=== PATIENT | male | born 1970 | race Caucasian/White ===

== ENCOUNTER 2019-07-05 05:56 | Emergency (ER) | payer BC, SELFPAY ==
[2019-07-05 06:01] VITALS: BP 140/103; PULSE 82; RESP 18; TEMP 36.8; O2SAT 95
[2019-07-05 06:05] VITALS: RESP 20
--- NOTE | 2019-07-05 06:06 | ED.GENADUL_ITS ---
Discharge Plan Disposition Patient Disposition: HOME Condition: Good Discharge Details Chief Complaint: SOB Clinical Impression: COPD exacerbation Primary Care Provider: Unknown,Unknown ED Provider: Zach Vázquez Meds and New Rx's Prescriptions: New prednisone 10 mg tablet See Rx Instructions .ROUTE .COMPLEX Qty: 40 RF: 0 albuterol sulfate 90 mcg/actuation HFA aerosol inhaler 2 puff IH .q4-6h PRN (Reason: shortness of breath or wheezing) Qty: 8.5 RF: 0 Continued Combivent Respimat 120 PUFF mist 1 puff Inhalation QID PRN PRNQty: 1 RF: 0 Discharge Instructions Instructions: COPD (Chronic Obstructive Pulmonary Disease) (ED) Additional Instructions: The albuterol inhaler with spacer every 4-6 hours for wheezing and shortness of breath. Prednisone taper as directed. Please follow-up with primary care within the next 1 to 2 weeks. Return to ED for fever, increasing shortness of breath, chest pain, other concerns or changes. Referrals: [facility] [Outside] Medical Decision Making Patient presenting with 2 months of worsening cough, shortness of breath and wheezing with history of COPD. No fever. No acute change just simply gradual worsening over time and not responding as well to inhalers and nebs as previous. He does not appear to be in distress. Given the duration of symptoms my suspicion for COVID is quite low. No focality to his exam but will obtain chest x-ray. Will give albuterol and prednisone. Chest x-ray per my review shows COPD changes but no infiltrates or edema. Patient feels better after using albuterol inhaler here. He has had his prednisone. He will go home with inhaler and prescription for prednisone taper. I will have him follow-up with his primary care at the [facility] within the next 1 to 2 weeks before the taper is complete. Return to ED for increasing shortness of breath, chest pain, fever. Medical Records Medical records reviewed: Yes I reviewed the patient's medical records. HPI General Mode of arrival: ambulatory . Date/Time Provider Initiated Documentation: 07/05/19 06:04 . Limitations to Documentation: no limitations . Information obtained by: patient and RN notes reviewed . HPI Narrative: Patient presents to ED with cough, wheezing and shortness of breath for about 2 months now. He does have a history of COPD. He has Combivent inhaler and has a nebulizer machine which he has been using. He denies having fever, congestion, sore throat. He has no chest pain. Inhaler and nebulizer make him better for short period of time. He has been having to use those more frequently. His inhaler is almost gone at this point. He does not have refills. [facility]. He does not necessarily feel worse this morning, but decided he should be seen as he is going to need new inhalers. Related Data Home Medications Medication Instructions Recorded Confirmed Combivent Respimat 1 puff INHALATION QID PRN PRN #1 01/11/14 07/05/19 aer.w.adap albuterol sulfate 2 puff IH .q4-6h PRN #8.5 gm 07/05/19 prednisone See Rx Instructions .ROUTE 07/05/19 .COMPLEX #40 tab Previous Rx's Medication Instructions Recorded Combivent Respimat 1 puff INHALATION QID PRN PRN #1 01/11/14 aer.w.adap albuterol sulfate 2 puff IH .q4-6h PRN #8.5 gm 07/05/19 prednisone See Rx Instructions .ROUTE 07/05/19 .COMPLEX #40 tab Allergies Allergy/AdvReac Type Severity Reaction Status Date / Time Penicillins Allergy Mild unkown as Unverified 07/05/19 06:14 child General Stated Complaint: SOB MILLICENT: 3 Review of Systems Constitutional Constitutional: Denies chills, Denies fever(s) and Denies headache(s) ENT Ears, Nose, Mouth, and Throat: Denies headache(s), Denies nasal congestion and Denies sore throat Cardiovascular Cardiovascular: Denies chest pain, Denies leg edema and Reports dyspnea Respiratory Respiratory: Reports cough, Denies excessive phlegm production, Reports dyspnea and Reports wheezing Neurologic Neurologic: Denies headache(s) Allergic/Immunologic Allergic/Immunologic: Reports wheezing [facility] Medical History COPD (chronic obstructive pulmonary disease) (Chronic) GERD (gastroesophageal reflux disease) (Chronic) HTN (hypertension) (Chronic) Surgical History S/P tonsillectomy (Acute) Social History Smoking/Tobacco Use Status: Former Tobacco Use Alcohol Intake: current Alcohol Intake frequency: a few times a month Drug use: Never Substance use type: does not use Do you feel safe at home: Yes Do you feel safe in your relationship?: Yes Exam Narrative Exam Narrative: Vitals: Afebrile. Elevated blood pressure otherwise normal pulse and r espiratory rate. Normal room air pulse oximetry at 95. Const: WDWN male in NAD. HEENT: NC/AT. Normal facial exam. Eyes: Normal conjunctiva and sclera. Neck: Supple. Trachea midline. Lungs: Normal respiratory effort. Lungs decent air exchange but prolonged expiratory phase with wheezing. Cor: RRR without murmur/gallop. Neuro: A+O x 3. Normal speech, mentation, gait. Cranial nerves II - XII grossly intact. No gross motor or sensory deficit. Course Vital Signs Vital signs: Vital Signs Temperature 98.2 F 07/05/19 06:01 Pulse 82 07/05/19 06:01 Respiratory Rate 18 07/05/19 06:01 Blood Pressure 140/103 H 07/05/19 06:01 Pulse Oximetry 95 07/05/19 06:01 Temperature 98.2 F 07/05/19 06:01 Pulse 82 07/05/19 06:01 Respiratory Rate 18 07/05/19 06:01 Blood Pressure 140/103 H 07/05/19 06:01 Blood Pressure Position Sitting 07/05/19 06:01 Pulse Oximetry 95 07/05/19 06:01 Oxygen Delivery Method Room Air 07/05/19 06:01 Oxygen Flow Rate 0 07/05/19 06:01 Pain Level 0 07/05/19 06:01
--- NOTE | 2019-07-05 06:15 | DI.RAD_ITS ---
EXAM: XR CHEST 2V PA LATERAL CLINICAL HISTORY: cough, wheezing TECHNIQUE: 2D digital imaging was performed. COMPARISON: CR CHEST 2 VIEWS PA,LAT from 01/24/2014 FINDINGS: MEDIASTINUM: Mildly ectatic aorta. HEART: Normal. PULMONARY VASCULATURE: Normal. LUNGS: Clear. PLEURAL SPACE: No pleural effusion or pneumothorax. BONE:Mild degenerative changes in the thoracic spine. OTHER FINDINGS:Normal. IMPRESSION: No acute pulmonary findings. DATA REPOSITORY: RADIATION DOSE DELIVERED:
[2019-07-05] MEDS: predniSONE 20 MG TAB 60 MG PO (06:20)
[2019-07-05] MEDS: Albuterol HFA 8 GM 60 PUFF INH IH (06:21)
--- NOTE | 2019-07-05 06:46 | DI.VRAD_ITS ---
PROCEDURE INFORMATION: Exam: XR Chest, 2 Views Exam date and time: 07/05/2019 6:30 AM Age: 48 years old Clinical indication: Cough and wheezing; Patient HX: Cough, wheezing TECHNIQUE: Imaging protocol: XR of the chest Views: 2 views. COMPARISON: CR CHEST 2 VIEWS PA,LAT 01/24/2014 3:23 AM FINDINGS: Lungs: Mild chronic interstitial prominence No consolidation. Pleural space: Unremarkable. No pleural effusion. No pneumothorax. Heart/Mediastinum: Grossly stable accounting for differences in technique Bones/joints: Unremarkable. IMPRESSION: No focal consolidation Grossly stable cardiomediastinal silhouette with prominent ascending thoracic aortic shadow. Underlying aneurysm not excluded Dictated and Authenticated by: Denilson Whitaker MD. Ordering:JONATHAN Serrano MD
== END 2019-07-05 06:52 | disposition home or self-care (01) ==
PROVIDERS: Emergency Provider Emergency Medicine
DX: J44.1 Chronic obstructive pulmonary disease with (acute) exacerbation (principal); I10 Essential (primary) hypertension; Z87.891 Personal history of nicotine dependence
CPT/HCPCS: 99283; 71046; J7512

== ENCOUNTER 2022-04-27 21:17 | Emergency (ER) | payer BC, SELFPAY ==
[2022-04-27 21:23] VITALS: BP 134/87; PULSE 85; RESP 18; TEMP 36.7; O2SAT 95
--- NOTE | 2022-04-27 22:06 | ED.GENADUL_ITS ---
Discharge Plan Disposition Patient Disposition: Home Discharge Details Clinical Impression: Finger laceration Primary Care Provider: Unknown,Unknown ED Provider: Opal Rausch Home Meds and New Rx's Prescriptions: Continued Combivent Respimat 120 PUFF mist 1 puff Inhalation QID PRN PRNQty: 1 0RF prednisone 10 mg tablet See Rx Instructions .ROUTE .COMPLEX Qty: 40 0RF Rx Instructions: 40mg po daily for 4 days then 30mg po daily for 4 days then 20mg po daily for 4 days then 10mg po daily for 4 days then stop. albuterol sulfate 90 mcg/actuation HFA aerosol inhaler 2 puff IH .q4-6h PRN (Reason: shortness of breath or wheezing) Qty: 8.5 0RF Discharge Instructions Instructions: Finger Laceration (ED) Additional Instructions: Keep wound clean and dry Suture removal in 10 to 12 days keep wound covered for 48 hours Return earlier should you have spreading redness, fever, worsening pain Discharge Data Discharge Date/Time-TO BE ENTERED AT DEPARTURE: 04/27/22 22:38 Medical Decision Making Patient presents with laceration to right third digit Secondary to persistent bleeding, 2 sutures were placed after digital block performed Patient tolerated procedure without incident Dressing applied and return precautions reviewed Suture removal in 10 to 12 days recommended Early return precautions discussed and patient expressed understanding HPI General Date/Time Provider Initiated Documentation: 04/27/22 22:06 . HPI Narrative: This 51-year-old gentleman presents with laceration to right middle finger after appraising it on metal clip. Denies any additional injury. States tetanus is up-to-date. The event occurred approximately 130 today per patient. Related Data Home Medications Medication Instructions Recorded Confirmed ipratropium 20 mcg-albuterol 100 1 puff inhalation QID PRN PRN ##1 01/11/14 07/05/19 mcg/actuation mist for inhalation (Combivent Respimat) albuterol sulfate 90 mcg/actuation 2 puff inhalation .q4-6h PRN 07/05/19 aerosol inhaler shortness of breath or wheezing #8.5 grams prednisone 10 mg tablet See Rx Instructions .Route 07/05/19 .COMPLEX #40 tabs Previous Rx's Medication Instructions Recorded ipratropium 20 mcg-albuterol 100 1 puff inhalation QID PRN PRN ##1 01/11/14 mcg/actuation mist for inhalation (Combivent Respimat) albuterol sulfate 90 mcg/actuation 2 puff inhalation .q4-6h PRN 07/05/19 aerosol inhaler shortness of breath or wheezing #8.5 grams prednisone 10 mg tablet See Rx Instructions .Route 07/05/19 .COMPLEX #40 tabs Allergies Allergy/AdvReac Type Severity Reaction Status Date / Time Penicillins Allergy Mild unkown as Unverified 07/05/19 06:14 child General Stated Complaint: Laceration MILLICENT: 4 PFSH All Active Problems (Updated 04/27/22 @ 22:15 by ELIJAH Espinoza) Finger laceration (Acute) HTN (hypertension) (Chronic) GERD (gastroesophageal reflux disease) (Chronic) COPD (chronic obstructive pulmonary disease) (Chronic) Surgical History S/P tonsillectomy Social History Smoking/Tobacco Use Status: Former Tobacco Use Smoking risk assessment performed?: Yes Alcohol Intake: current Alcohol Intake frequency: a few times a month Drug use: Never Substance use type: does not use Do you feel safe at home: Yes Do you feel safe in your relationship?: Yes Exam Extrem Other: Right third digit with approximately 1 cm laceration distally, neurovascularly intact was Course Vital Signs Vital signs: Vital Signs Temperature 36.7 C 04/27/22 21:23 Pulse 85 04/27/22 21:23 Respiratory Rate 18 04/27/22 21:23 Blood Pressure 134/87 04/27/22 21:23 Pulse Oximetry 95 04/27/22 21:23 Temperature 36.7 C 04/27/22 21:23 Temperature Source Oral 04/27/22 21:23 Pulse 85 04/27/22 21:23 Respiratory Rate 18 04/27/22 21:23 Respiratory Effort Normal 04/27/22 21:29 Blood Pressure 134/87 04/27/22 21:23 Blood Pressure Position Sitting 04/27/22 21:23 Pulse Oximetry 95 04/27/22 21:23 Oxygen Delivery Method Room Air 04/27/22 21:23 Oxygen Flow Rate 0 04/27/22 21:23 Pain Level 3 04/27/22 21:23 Procedures Laceration Laceration 1: Site: hand Side (If applicable): right Size (cm): 2 Description: linear Depth: simple, single layer Local Anesthetic: Lidocaine 1% Amount of anesthesia used (mL): 3 Size (cm): 5-0 Number of sutures: 2 Technique: simple, interrupted
[2022-04-27 22:37] VITALS: BP 132/88; PULSE 84; RESP 18; O2SAT 96
== END 2022-04-27 22:38 | disposition home or self-care (01) ==
PROVIDERS: Emergency Provider Physician Assistant
DX: S61.212A Laceration without foreign body of right middle finger without damage to nail, initial encounter (principal); W45.8XXA Other foreign body or object entering through skin, initial encounter
CPT/HCPCS: 12001

== ENCOUNTER 2022-05-06 08:49 | Emergency (ER) | payer BC, SELFPAY ==
[2022-05-06 08:58] VITALS: BP 126/83; PULSE 70; RESP 18; TEMP 35.2; O2SAT 96
--- NOTE | 2022-05-06 09:29 | ED.GENADUL_ITS ---
Discharge Plan Disposition Patient Disposition: Home Discharge Details Clinical Impression: Encounter for removal of sutures Primary Care Provider: [facility] ED Provider: Lucas Foreman Discharge Instructions [facility]errals: [facility] [Primary Care Provider] - (As needed for reassessment) Medical Decision Making Patient here for suture removal. Wound appearing well and no signs of infection or dehiscence. senior staff psychologist appropriately removed sutures. Patient instructed to monitor for signs of infection. After discussion of diagnosis and plan of care patient has no further needs, questions, or concerns and states clear understanding to return to the emergency department for any worsening symptoms. This documentation was generated using [employer] system, please disregard any oddities of phrase or misspellings. HPI General Mode of arrival: ambulatory . Date/Time Provider Initiated Documentation: 05/06/22 08:56 . Limitations to Documentation: no limitations . Information obtained by: patient, RN notes reviewed and old records reviewed . History of Present Illness 51 year old M presents to the emergency department with the chief complaint of Suture removal, Patient notes no other symptoms.. Related Data Allergies Allergy/AdvReac Type Severity Reaction Status Date / Time Penicillins Allergy Mild unkown as Unverified 05/06/22 09:09 child General Stated Complaint: SutureRem MILLICENT: 5 Review of Systems All systems reviewed & are unremarkable except as noted in HPI and below Integumentary/Breasts Skin/Breast: Reports as per HPI PFSH All Active Problems (Updated 05/06/22 @ 09:33 by Lucas Foreman NP) Finger laceration (Acute) Encounter for removal of sutures (Acute) HTN (hypertension) (Chronic) GERD (gastroesophageal reflux disease) (Chronic) COPD (chronic obstructive pulmonary disease) (Chronic) Surgical History S/P tonsillectomy Social History Smoking/Tobacco Use Status: Former Tobacco Use Smoking risk assessment performed?: Yes Alcohol Intake: current Alcohol Intake frequency: a few times a month Drug use: Never Substance use type: does not use Do you feel safe at home: Yes Do you feel safe in your relationship?: Yes Exam Const General: cooperative, comfortable and no acute distress Orientation: alert, awake and oriented x3 Resp Effort & Inspection: normal respiratory effort, able to speak in complete sentences and no respiratory distress Skin Rashes: no rashes Trauma: laceration (healing well laceration without erythema, purulence, or dehiscence.) Neuro General: patient alert, patient awake and patient oriented x3 Course Vital Signs Vital signs: Vital Signs Temperature 35.2 C L 05/06/22 08:58 Pulse 70 05/06/22 08:58 Respiratory Rate 18 05/06/22 08:58 Blood Pressure 126/83 05/06/22 08:58 Pulse Oximetry 96 05/06/22 08:58 Temperature 35.2 C L 05/06/22 08:58 Temperature Source Tympanic 05/06/22 08:58 Pulse 70 05/06/22 08:58 Respiratory Rate 18 05/06/22 08:58 Respiratory Effort Normal 05/06/22 09:10 Blood Pressure 126/83 05/06/22 08:58 Blood Pressure Position Sitting 05/06/22 08:58 Pulse Oximetry 96 05/06/22 08:58 Oxygen Delivery Method Room Air 05/06/22 08:58 Oxygen Flow Rate 0 05/06/22 08:58 Pain Level 0 05/06/22 08:58
== END 2022-05-06 09:16 | disposition home or self-care (01) ==
PROVIDERS: Emergency Provider Nurse Practitioner Family
DX: S61.212D Laceration without foreign body of right middle finger without damage to nail, subsequent encounter (principal); Z48.02 Encounter for removal of sutures